=== PATIENT | female | born 1975 | race African-American/Black ===

== ENCOUNTER 2017-01-05 21:06 | Emergency (ER) | payer OTHER ==
[~2017-01-05] VITALS: Ht 162.6 cm; Wt 71.0 kg
[~2017-01-05 21:06] MED LIST: HYDR25TA PO
[2017-01-05 21:44] VITALS: BP 152/103
[2017-01-05] MEDS ORDERED: ACETAMINOPHEN/CODEINE 300-30 MG TABLET PO ONE (21:45)
== END 2017-01-05 23:26 | disposition home or self-care (01) ==
LOC: EMS 21:07
DX: J06.9 Acute upper respiratory infection, unspecified (principal); J45.909 Unspecified asthma, uncomplicated; I10 Essential (primary) hypertension
CPT/HCPCS: 71020; 99284